=== PATIENT | female | born 1990 | race Caucasian/White ===

== ENCOUNTER 2017-10-12 23:58 | Emergency (ER) | payer OTHER, MEDICAID ==
[~2017-10-12] VITALS: Ht 180.3 cm; Wt 95.3 kg
[~2017-10-12 23:58] MED LIST: MACROBID 100 M100 M1 PO; NOHOMEMEDICATIONS
[2017-10-13 00:56] LABS: URINE BILIRUBIN NEGATIVE (Negative); URINE BLOOD 3+ (Negative); URINE CLARITY CLEAR; URINE COLOR YELLOW; URINE GLUCOSE-RANDOM NEGATIVE (Negative); URINE KETONES NEGATIVE (Negative); URINE LEUKOCYTES-REFLEX 1+ (Negative); URINE NITRITE-REFLEX NEGATIVE (Negative); URINE PROTEIN 2+ (Negative); URINE UROBILINOGEN 0.2 E.U./dl (0.2-1.0)
[2017-10-13 01:29] LABS: CASTS None Seen /LPF (None Seen); SQUAMOUS 0-3 Few /LPF (0-3)
[2017-10-13 01:31] LABS: CRYSTALS None Seen /LPF (None Seen); URINE RBC 3-10 Few /HPF (0-2)
[2017-10-13] MEDS ORDERED: KEFLEX500 M1 PO (02:10)
[2017-10-13] MEDS ORDERED: NORCO 5-325 TA1 EACH PO (02:10)
[2017-10-13] MEDS ORDERED: PHENERGAN 25 MG25 M1 PO (02:10)
[2017-10-13 02:30] VITALS: BP 130/70
== END 2017-10-13 02:30 | disposition home or self-care (01) ==
LOC: M.ERS 23:58
PROVIDERS: Personal Emergency Response Attendant
DX: N39.0 Urinary tract infection, site not specified (principal); F17.210 Nicotine dependence, cigarettes, uncomplicated